=== PATIENT | male | born 1955 | race Caucasian/White ===

== ENCOUNTER 2019-07-12 11:19 | Inpatient (IN) | payer BC ==
[~2019-07-12] VITALS: Ht 180.3 cm; Wt 89.5 kg
[2019-07-12] MEDS ORDERED: ATOR40TA PO (11:39)
[2019-07-12] MEDS ORDERED: EZET10TA21 PO (11:39)
[2019-07-12] MEDS ORDERED: ASPI-1265 PO (11:39)
[2019-07-12] MEDS ORDERED: LOSA25TA96 PO (11:39)
[2019-07-12] MEDS ORDERED: FLO0.4C PO (11:39)
[2019-07-12] MEDS ORDERED: HYDR12.5 PO (11:39)
[2019-07-12] MEDS ORDERED: ipratropium/albuterol 3ml nebule NEB ONE ×2 (11:45→12:40)
[2019-07-12] MEDS ORDERED: methylPREDNISolone sod succ 125mg/2ml vial IV ONE (11:45)
[2019-07-12 12:02] LABS: HEMOGLOBIN 16.7 g/dl (14.0-17.9); PLATELET COUNT 278 X10'3 (140-440); RED BLOOD COUNT 5.25 X10'6 (4.70-6.10); RED CELL DISTRIBUTION WIDTH 13.7 % (11.5-14.5)
[2019-07-12 12:04] LABS: BASOPHILS % (AUTO) 0.4 % (0-1); EOSINOPHILS # (AUTO) 0.4 X10'3 (0-0.9); EOSINOPHILS % (AUTO) 5.3 % (0-6); LYMPHOCYTES # (AUTO) 0.9 X10'3 (1.1-4.8); MEAN CORPUSCULAR HEMOGLOBIN 31.8 PG (27.0-31.0); MEAN CORPUSCULAR HGB CONC 34.8 g/dL (33.0-36.5); MEAN CORPUSCULAR VOLUME 91.4 FL (78-98); MONOCYTES # (AUTO) 0.3 X10'3 (0-0.9); MONOCYTES % (AUTO) 4.1 % (2-12); NEUTROPHILS # (AUTO) 6.5 X10'3 (1.8-7.7); NEUTROPHILS % (AUTO) 79.2 % (42-75); WHITE BLOOD COUNT 8.2 X10'3 (4.5-11.0)
[2019-07-12 12:11] LABS: PARTIAL THROMBOPLASTIN TIME 26 SECONDS (22-32)
[2019-07-12 12:15] LABS: ALANINE AMINOTRANSFERASE 33 U/L (12-78); ALBUMIN 4.3 G/DL (3.4-5.0); ALBUMIN/GLOBULIN RATIO 1.2 (1.1-1.5); ALKALINE PHOSPHATASE 93 IU/L (46-116); ANION GAP 9 (8-16); ASPARTATE AMINO TRANSFERASE 18 U/L (10-37); BILIRUBIN,TOTAL 0.6 MG/DL (0.1-1.0); BLOOD UREA NITROGEN 17 MG/DL (7-18); BUN/CREATININE RATIO 17.9 (5.4-32.0); CALCIUM 9.2 MG/DL (8.5-10.1); CHLORIDE 102 MMOL/L (99-107); CREATININE 0.95 MG/DL (0.60-1.10); GLUCOSE 106 MG/DL (70-104); POTASSIUM 4.4 MMOL/L (3.5-5.1); SODIUM 140 MMOL/L (135-145); TOTAL CARBON DIOXIDE 29.4 MMOL/L (24-32); TOTAL PROTEIN 7.9 G/DL (6.4-8.2); eGFR 80 ML/MIN
[2019-07-12] MEDS ORDERED: magnesium 4gm in 100ml NS 100 ML IV PRN (13:00)
[2019-07-12] MEDS ORDERED: acetaminophen 325mg tablet PO PRN ×2 (13:00)
[2019-07-12] MEDS ORDERED: ipratropium/albuterol 3ml nebule NEB PRN (13:00)
[2019-07-12] MEDS ORDERED: ondansetron/PF 4mg/2ml inj IV PRN (13:00)
[2019-07-12] MEDS ORDERED: magnesium Cl slow-release 64mg tablet PO PRN (13:00)
[2019-07-12] MEDS ORDERED: magnesium 2GM in 50ml NS 50 ML IV PRN (13:00)
[2019-07-12] MEDS ORDERED: potassium CL 10mEq/100ml bag 100 ML IV PRN ×2 (13:00)
[2019-07-12] MEDS ORDERED: magnesium hydroxide 30ml (MOM) UD suspension PO PRN (13:00)
[2019-07-12] MEDS ORDERED: potassium Cl 20 mEq SR tablet PO PRN ×2 (13:00)
[2019-07-12] MEDS ORDERED: mag hydrox/Alum hydrox/simeth 30ml oral suspension PO PRN (13:00)
[2019-07-12] MEDS: azithromycin/NS 500mg/250ml 250 ML IV SCH (13:52)
[2019-07-12] MEDS: ipratropium/albuterol 3ml nebule NEB SCH ×3 (15:48→22:51)
[2019-07-12] MEDS ORDERED: methylPREDNISolone sod succ/PF 40mg inj. IV SCH (16:00)
--- NOTE | 2019-07-12 16:10 | NUR ---
I have received report from ELIZABETH Esquivel and had the opportunity to ask questions and assume patient care.
--- NOTE | 2019-07-12 16:20 | NUR ---
Pt. arrived to floor via wheelchair. 2L O2 NC applied. Family at bedside. Call light provided. Vital signs taken.
[2019-07-12 16:28] VITALS: BP 128/79
--- NOTE | 2019-07-12 18:18 | NUR ---
Problems reprioritized. Patient report given, questions answered & plan of care reviewed with ELIZABETH Ramos.
[2019-07-12 19:00] VITALS: BP 113/70
[2019-07-13] VITALS: BP 111/46
[2019-07-13] MEDS: ceFAZolin 1GM/D5W- ADD-VANTAGE 50 ML IV SCH ×4 (02:29→23:21)
[2019-07-13] MEDS: ipratropium/albuterol 3ml nebule NEB SCH ×6 (02:52→23:41)
[2019-07-13 06:30] VITALS: BP 107/74
--- NOTE | 2019-07-13 06:50 | NUR ---
Patient in room [id number]. I have received report from ELIZABETH Ramos and had the opportunity to ask questions and assume patient care.
[2019-07-13 06:51] LABS: ALBUMIN 3.7 G/DL (3.4-5.0); ANION GAP 12 (8-16); BLOOD UREA NITROGEN 26 MG/DL (7-18); BUN/CREATININE RATIO 28.6 (5.4-32.0); CALCIUM 8.6 MG/DL (8.5-10.1); CHLORIDE 103 MMOL/L (99-107); CREATININE 0.91 MG/DL (0.60-1.10); GLUCOSE 123 MG/DL (70-104); MAGNESIUM 1.8 MG/DL (1.5-2.4); SODIUM 140 MMOL/L (135-145); eGFR 84 ML/MIN
[2019-07-13 07:02] LABS: BASOPHILS % (AUTO) 0.1 % (0-1); EOSINOPHILS % (AUTO) 0 % (0-6); HEMATOCRIT 44.3 % (42.0-52.0); LYMPHOCYTES # (AUTO) 0.8 X10'3 (1.1-4.8); LYMPHOCYTES % (AUTO) 4.3 % (21-51); MEAN CORPUSCULAR HEMOGLOBIN 31.5 PG (27.0-31.0); MEAN CORPUSCULAR HGB CONC 33.8 g/dL (33.0-36.5); MEAN CORPUSCULAR VOLUME 93.2 FL (78-98); MEAN PLATELET VOLUME 8.5 FL (7.4-10.4); MONOCYTES % (AUTO) 5.3 % (2-12); NEUTROPHILS # (AUTO) 16.6 X10'3 (1.8-7.7); NEUTROPHILS % (AUTO) 90.3 % (42-75); PLATELET COUNT 271 X10'3 (140-440); RED BLOOD COUNT 4.76 X10'6 (4.70-6.10); RED CELL DISTRIBUTION WIDTH 13.8 % (11.5-14.5); WHITE BLOOD COUNT 18.4 X10'3 (4.5-11.0)
[2019-07-13] MEDS: K and/or MAG REPLACEMENT MC SCH (07:27)
[2019-07-13] MEDS: azithromycin/NS 500mg/250ml 250 ML IV SCH (08:00)
[2019-07-13] MEDS ORDERED: HYDROchlorothiazide 12.5mg capsule PO SCH (08:00)
[2019-07-13] MEDS: enoxaparin 40mg/0.4ml syringe SQ SCH (09:44)
[2019-07-13] MEDS: tamsulosin 0.4mg capsule PO SCH (09:44)
[2019-07-13] MEDS: losartan 25mg tablet PO SCH (09:44)
[2019-07-13] MEDS: predniSONE 20 mg tablet PO SCH (09:45)
[2019-07-13] MEDS: aspirin 81mg tab.chew PO SCH (09:45)
[2019-07-13] MEDS: ezetimibe 10mg tablet PO SCH (09:46)
[2019-07-13] MEDS: atorvastatin 20mg tablet PO SCH (09:47)
[2019-07-13] MEDS ORDERED: HYDROchlorothiazide 25mg tablet PO SCH ×2 (09:50→13:57)
[2019-07-13] MEDS ORDERED: nicotine 14mg patch - 24hr TD ONE (10:00)
[2019-07-13] MEDS ORDERED: pneumococcal 23-VAL P-sac vacc 25 mcg/0.5ml vial IMVAC ONE (10:00)
[2019-07-13 11:00] VITALS: BP 99/65
--- NOTE | 2019-07-13 13:00 | NUR ---
Pt clarified PMD to be Jesus Stanford MD @ [id number] [id number] ([phone]).
--- NOTE | 2019-07-13 18:20 | NUR ---
Problems reprioritized. Patient report given, questions answered & plan of care reviewed with ELIZABETH Ramos.
[2019-07-13 18:30] VITALS: BP 110/69
--- NOTE | 2019-07-13 18:30 | NUR ---
Patient in room [facility]. I have received report from Dasia JOHNSON and had the opportunity to ask questions and assume patient care.
[2019-07-13] MEDS: lactobacillus rhamnosus 10,000 MMU CELLS/CAPSULE PO SCH (20:06)
[2019-07-14] VITALS: BP 112/69
[2019-07-14] MEDS: ipratropium/albuterol 3ml nebule NEB SCH ×3 (03:34→12:05)
[2019-07-14 06:22] LABS: BASOPHILS % (AUTO) 0.2 % (0-1); EOSINOPHILS # (AUTO) 0.1 X10'3 (0-0.9); EOSINOPHILS % (AUTO) 1.1 % (0-6); HEMATOCRIT 41.8 % (42.0-52.0); HEMOGLOBIN 14.3 g/dl (14.0-17.9); LYMPHOCYTES # (AUTO) 2.1 X10'3 (1.1-4.8); MEAN CORPUSCULAR HEMOGLOBIN 31.6 PG (27.0-31.0); MEAN CORPUSCULAR HGB CONC 34.2 g/dL (33.0-36.5); MEAN CORPUSCULAR VOLUME 92.4 FL (78-98); MEAN PLATELET VOLUME 8.4 FL (7.4-10.4); MONOCYTES % (AUTO) 8.1 % (2-12); NEUTROPHILS # (AUTO) 9.2 X10'3 (1.8-7.7); NEUTROPHILS % (AUTO) 73.6 % (42-75); PLATELET COUNT 250 X10'3 (140-440); RED BLOOD COUNT 4.52 X10'6 (4.70-6.10); RED CELL DISTRIBUTION WIDTH 13.6 % (11.5-14.5); WHITE BLOOD COUNT 12.4 X10'3 (4.5-11.0)
[2019-07-14 06:30] VITALS: BP 121/64
--- NOTE | 2019-07-14 06:30 | NUR ---
Patient in room [id number]. I have received report from ELIZABETH Ramos and had the opportunity to ask questions and assume patient care.
[2019-07-14 06:46] LABS: ALBUMIN 3.5 G/DL (3.4-5.0); ANION GAP 7 (8-16); BLOOD UREA NITROGEN 26 MG/DL (7-18); BUN/CREATININE RATIO 26.8 (5.4-32.0); CALCIUM 8.6 MG/DL (8.5-10.1); CHLORIDE 104 MMOL/L (99-107); CREATININE 0.97 MG/DL (0.60-1.10); GLUCOSE 89 MG/DL (70-104); POTASSIUM 3.5 MMOL/L (3.5-5.1); SODIUM 140 MMOL/L (135-145); TOTAL CARBON DIOXIDE 28.6 MMOL/L (24-32); eGFR 78 ML/MIN
--- NOTE | 2019-07-14 06:49 | NUR ---
Problems reprioritized. Patient report given, questions answered & plan of care reviewed with Dasia RN.
[2019-07-14] MEDS: K and/or MAG REPLACEMENT MC SCH (06:57)
[2019-07-14] MEDS ORDERED: nicotine 14mg patch - 24hr TD SCH (08:00)
[2019-07-14] MEDS: losartan 25mg tablet PO SCH (08:17)
[2019-07-14] MEDS: enoxaparin 40mg/0.4ml syringe SQ SCH (08:17)
[2019-07-14] MEDS: lactobacillus rhamnosus 10,000 MMU CELLS/CAPSULE PO SCH (08:17)
[2019-07-14] MEDS: ezetimibe 10mg tablet PO SCH (08:17)
[2019-07-14] MEDS: predniSONE 20 mg tablet PO SCH (08:18)
[2019-07-14] MEDS: atorvastatin 20mg tablet PO SCH (08:18)
[2019-07-14] MEDS: aspirin 81mg tab.chew PO SCH (08:18)
[2019-07-14] MEDS: ceFAZolin 1GM/D5W- ADD-VANTAGE 50 ML IV SCH (08:18)
[2019-07-14] MEDS: tamsulosin 0.4mg capsule PO SCH (08:18)
[2019-07-14] MEDS: azithromycin/NS 500mg/250ml 250 ML IV SCH (08:52)
[2019-07-14 11:30] VITALS: BP 108/77
[2019-07-14] MEDS ORDERED: PRED20TA PO (12:29)
[2019-07-14] MEDS ORDERED: CEFD300C3 PO (12:29)
[2019-07-14] MEDS ORDERED: BUDE10.22 INH (12:29)
[2019-07-14] MEDS ORDERED: ALBU18HF2 INH (12:29)
--- NOTE | 2019-07-14 13:24 | NUR ---
O2 Sat at rest on room air:_82__% If below 89%: Recovery O2 Sat at rest on __3_LPM:___91%:___% via NC (mask/nasal cannula, etc..) No further documentation is necessary. If O2 Sat did not drop below 89% on room air,ambulate patient on room air. O2 Sat while ambulating on room air:___% Recovery O2 Sat while ambulating on ___LPM:___% No further documentation is necessary. If patient does not drop below 89% while ambulating, he/she does not qualify for home O2.
--- NOTE | 2019-07-14 16:10 | NUR ---
DC inst provided to pt & . IV DC'd, tip intact. All belongings sent w/pt. RN ambulated pt to front lobby.
== END 2019-07-14 16:10 | disposition home or self-care (01) | DRG 189 ==
LOC: ER 11:20 → SUR 3N 16:10
PROVIDERS: ADMIT Hospitalist; ATTEND Hospitalist
DX: J96.00 Acute respiratory failure, unspecified whether with hypoxia or hypercapnia (principal); J44.1 Chronic obstructive pulmonary disease with (acute) exacerbation; J44.0 Chronic obstructive pulmonary disease with (acute) lower respiratory infection; J20.9 Acute bronchitis, unspecified; F17.200 Nicotine dependence, unspecified, uncomplicated; Z88.0 Allergy status to penicillin; Z79.899 Other long term (current) drug therapy; Z71.6 Tobacco abuse counseling; Z99.81 Dependence on supplemental oxygen
CPT/HCPCS: 36415; 71045; 80048; 80053; 83605; 83735; 83880; 84484; 85025; 85610; 85730; 87040; 87077; 87081; 87186; 90732; 93005; 94640; 94667; 94668; 94760; 96365; 96375; 97116; 97161; 99285; G0378; J0456; J0690; J1650; J2920; J2930; J7512

== ENCOUNTER 2023-02-05 06:57 | Emergency (ER) | payer MEDICARE, BC ==
[~2023-02-05] VITALS: Ht 180.3 cm; Wt 94.0 kg
[~2023-02-05 06:57] MED LIST: ALBU18HF2 INH; ASPI-1265 PO; ATOR40TA PO; BUDE10.22 INH; EZET10TA6 PO; FLO0.4C PO; HYDR12.5 PO; LOSA25TA96 PO; PRED20TA PO
[2023-02-05] MEDS ORDERED: ondansetron 4mg rapidly disintigrating tab PO ONE (07:20)
[2023-02-05] MEDS ORDERED: morphine 4 MG/ML inj SYRINge IV ONE (07:20)
[2023-02-05 08:04] LABS: BASOPHILS % (AUTO) 0.5 % (0-1); EOSINOPHILS # (AUTO) 0.3 X10'3 (0-0.9); EOSINOPHILS % (AUTO) 4.3 % (0-6); HEMATOCRIT 48.7 % (42.0-52.0); HEMOGLOBIN 16.4 g/dl (14.0-17.9); LYMPHOCYTES # (AUTO) 1.5 X10'3 (1.1-4.8); MEAN CORPUSCULAR HEMOGLOBIN 31.5 PG (27.0-31.0); MEAN CORPUSCULAR HGB CONC 33.7 g/dL (33.0-36.5); MEAN CORPUSCULAR VOLUME 93.4 FL (78-98); MONOCYTES # (AUTO) 0.7 X10'3 (0-0.9); MONOCYTES % (AUTO) 8.2 % (2-12); NEUTROPHILS # (AUTO) 5.6 X10'3 (1.8-7.7); PLATELET COUNT 278 X10'3 (140-440); RED BLOOD COUNT 5.21 X10'6 (4.70-6.10); WHITE BLOOD COUNT 8.1 X10'3 (4.5-11.0)
[2023-02-05 08:17] LABS: ALANINE AMINOTRANSFERASE 28 U/L (12-78); ALBUMIN 3.8 G/DL (3.4-5.0); ALBUMIN/GLOBULIN RATIO 1.1 (1.1-1.5); ALKALINE PHOSPHATASE 78 IU/L (46-116); ANION GAP 10 (8-16); ASPARTATE AMINO TRANSFERASE 23 U/L (10-37); BILIRUBIN,TOTAL 0.5 MG/DL (0.1-1.0); BLOOD UREA NITROGEN 22 MG/DL (7-18); BUN/CREATININE RATIO 23.4 (10.0-20.0); CALCIUM 8.8 MG/DL (8.5-10.1); CHLORIDE 105 MMOL/L (99-107); CREATININE 0.94 MG/DL (0.60-1.10); GLUCOSE 118 MG/DL (70-104); POTASSIUM 4.1 MMOL/L (3.5-5.1); SODIUM 141 MMOL/L (135-145); TOTAL CARBON DIOXIDE 26.3 MMOL/L (24-32); TOTAL PROTEIN 7.2 G/DL (6.4-8.2); eGFR 80 ML/MIN
[2023-02-05] MEDS ORDERED: ketorolac trometh. 30mg/ml inj. IM ONE (08:40)
--- NOTE | 2023-02-05 09:01 | NUR ---
Assumed care from RN. Pt in stable condition. at bedside.
[2023-02-05] MEDS ORDERED: IBUP-1985 PO (10:16)
[2023-02-05] MEDS ORDERED: HYDR-3965 PO (10:16)
[2023-02-05 10:24] VITALS: BP 138/88
== END 2023-02-05 10:28 | disposition home or self-care (01) ==
LOC: ER 06:58
DX: M54.50 Low back pain, unspecified (principal); F17.200 Nicotine dependence, unspecified, uncomplicated; Z88.0 Allergy status to penicillin
CPT/HCPCS: 36415; 80053; 85025; 96372; 96374; 99284; J1885; J2270

== ENCOUNTER 2023-09-19 07:01 | Day surgery (SDC) | payer MEDICARE, BC ==
[~2023-09-19] VITALS: Ht 177.8 cm; Wt 97.0 kg
[2023-09-19] VITALS (9 sets, daily range): BP systolic 104–131; BP diastolic 62–87; PULSE 71–87; RESP 13–22; TEMP 97.4; O2SAT 95–100
[2023-09-19] MEDS: tranexamic acid inj. 1,000 MG in normal saline IV soln 100ML IV ONE (05:30)
[~2023-09-19 07:01] MED LIST changes: -ALBU18HF2 INH; -BUDE10.22 INH; +BUDE10.27 PO; -FLO0.4C PO; +LIDOcaine 1% w/EPI 1:100,000 inj. MDV 50 ML VIAL ONE; +LOSA-415 PO; -LOSA25TA96 PO; -PRED20TA PO; +clindamycin-Cleocin 900mg/D5W 50 ML IV ONE; +cocaine 4% topical solution 4ml bottle ONE; +famotidine 20mg tablet PO ONE; +mupirocin 2% ointment 22GM ONE; +oxymetazoline 15 ML nasal spray NS ONE; +ringers solution, lacted 1,000 ML IV SCH
[2023-09-19] MEDS ORDERED: epiNEPHrine 1 mg/ml 30ml MDV ONE (07:25)
[2023-09-19] MEDS ORDERED: cocaine 4% topical solution 4ml bottle ONE (07:25)
[2023-09-19] MEDS ORDERED: oxymetazoline 15 ML nasal spray NS ONE (07:25)
[2023-09-19] MEDS ORDERED: labetalol 20mg/4ml (5mg/ml) syringe IV PRN (09:20)
[2023-09-19] MEDS ORDERED: morphine 2 MG/ML inj. syringe IV PRN (09:20)
[2023-09-19] MEDS ORDERED: meperidine/PF 25mg/ml syringe IV PRN ×3 (09:20)
[2023-09-19] MEDS ORDERED: ondansetron/PF 4mg/2ml inj IV PRN (09:20)
[2023-09-19] MEDS ORDERED: ringers solution, lacted 1,000 ML IV SCH (09:20)
[2023-09-19] MEDS ORDERED: proCHLORperazine 10 MG/2 ml inj IV PRN (09:20)
[2023-09-19] MEDS ORDERED: morphine 4 MG/ML inj SYRINge IV PRN (09:20)
[2023-09-19] MEDS ORDERED: sevoflurane 250ml liquid IH ONE (09:28)
[2023-09-19] MEDS ORDERED: fentaNYL/PF 50MCG/1 ML 2ML syringe ONE (09:31)
[2023-09-19] MEDS ORDERED: midazolam 1 mg/ML 2ml injection ONE (09:34)
[2023-09-19] MEDS ORDERED: dexamethasone sod phosphate 4mg/ml inj. ONE (11:00)
[2023-09-19] MEDS ORDERED: propofol inj 20 ML IV ONE (11:00)
[2023-09-19] MEDS ORDERED: ePHEDrine 50MG/ML INJ. ONE (11:00)
[2023-09-19] MEDS ORDERED: ondansetron/PF 4mg/2ml inj ONE (11:00)
[2023-09-19] MEDS ORDERED: acetaminophen 1,000mg/100ml IV 100 ML IV ONE (11:17)
--- NOTE | 2023-09-19 11:30 | NUR ---
Received from OR via [facility] IN STABLE CONDITION , accompanied by Anesthesiologist and ECOLOGIST report given by ECOLOGIST AND Anesthesiolgist. Addendum: 09/19/23 at 1149 by Kayley Higginbotham RN Amended: Links added.
[2023-09-19] MEDS ORDERED: mupirocin 2% nasal ointment 1gm UD NS STA (11:41)
[2023-09-19] MEDS ORDERED: salt irrigation nasal spray 45 ML SPRAY NS PRN (11:45)
--- NOTE | 2023-09-19 13:30 | NUR ---
PATIENT DISCHARGED FROM PACU IN STABLE CONDITION AFTER WRITTEN AND VERBAL DISCHARGE INSTRUCTIONS GIVEN. PATIENT GAVE VERBAL UNDERSTANDING OF INSTRUCTIONS. PATIENT LEFT FACILITY VIA WHEELCHAIR WITH RN. Addendum: 09/19/23 at 1348 by Kayley Higginbotham RN Amended: Links added.
== END 2023-09-19 13:30 | disposition home or self-care (01) ==
LOC: PAS 07:01
PROVIDERS: ATTEND Otolaryngology
DX: J34.2 Deviated nasal septum (principal); J34.3 Hypertrophy of nasal turbinates; J32.8 Other chronic sinusitis; I10 Essential (primary) hypertension; J44.9 Chronic obstructive pulmonary disease, unspecified; G47.30 Sleep apnea, unspecified; E78.5 Hyperlipidemia, unspecified; F17.210 Nicotine dependence, cigarettes, uncomplicated; Z88.0 Allergy status to penicillin; Z79.899 Other long term (current) drug therapy; Z72.89 Other problems related to lifestyle; Z98.890 Other specified postprocedural states; Z79.82 Long term (current) use of aspirin
CPT/HCPCS: 30140; 30520; 31259; 31267; 31276; 61782; 82948; 93005; A6402; J0131; J0171; J1100; J2250; J2405; J2704; J3010; J3490; J7030; J7050; J7120; Z7506; Z7508; Z7512; A4618; A6449; A7000